=== PATIENT | male | born 1985 | race Caucasian/White ===

== ENCOUNTER 2020-03-07 12:08 | Emergency (ER) | payer SELFPAY ==
[~2020-03-07] VITALS: Ht 172.7 cm; Wt 68.0 kg
[2020-03-07 12:17] VITALS: BP 122/86
== END 2020-03-07 14:57 | disposition home or self-care (01) ==
LOC: ER 12:08
DX: Z76.0 Encounter for issue of repeat prescription (principal); F41.9 Anxiety disorder, unspecified; F17.210 Nicotine dependence, cigarettes, uncomplicated